=== PATIENT | male | born 1945 | race Caucasian/White ===

== ENCOUNTER 2018-10-27 05:38 | Outpatient (CLI) | payer MEDICARE, OTHER ==
[~2018-10-27] VITALS: Ht 182.9 cm; Wt 78.6 kg
[~2018-10-27 05:38] MED LIST: ACET-2469 PO; AMLO5TAB9 PO; HYDR-3455 PO; HYDR12.5 PO; LISI40TA PO; METO-333 PO; MULT-517 PO
[2018-10-27] MEDS ORDERED: VITA-203 PO (11:57)
[2018-10-27] MEDS ORDERED: ATOR20TA66 PO (11:57)
== END 2018-10-27 13:06 | disposition home or self-care (01) ==
LOC: PREOP 05:38
PROVIDERS: ATTEND Surgery
DX: Z01.818 Encounter for other preprocedural examination (principal)

== ENCOUNTER 2018-11-03 09:25 | Day surgery (SDC) | payer MEDICARE, OTHER ==
[~2018-11-03] VITALS: Ht 182.9 cm; Wt 78.6 kg
[~2018-11-03 09:25] MED LIST changes: +ATOR20TA66 PO; +VITA-203 PO
--- OUTSIDE RECORDS SUMMARY | 2018-11-03 09:28 | XMS REPORT | Continuity of Care Document ---
Author Organization Unknown Address Unknown Allergies Active Description Code Type Severity Reaction Onset Reported/Identified Relationship to Patient Clinical Status Yes No Known Drug Allergies [id number] Drug Allergy Unknown N/A 10/27/2018 Medications There is no data. Problems Date Dx Coded Attending Type Code Diagnosis Diagnosed By 10/11/2015 PETRA BROWN DO Ot R22.2 LOCALIZED SWELLING, MASS AND LUMP, TRUNK 10/11/2015 PETRA BROWN DO Ot R22.2 LOCALIZED SWELLING, MASS AND LUMP, TRUNK 11/08/2015 PETRA BROWN DO Ot R22.2 LOCALIZED SWELLING, MASS AND LUMP, TRUNK 12/15/2015 PETRA BROWN DO Ot R22.2 LOCALIZED SWELLING, MASS AND LUMP, TRUNK 12/15/2015 ASHER MCNEILL, MIKE Beard Ot K40.90 UNIL INGUINAL HERNIA, W/O OBST OR GANGR, 12/15/2015 ASHER MCNEILL, MIKE Beard Ot Z01.812 ENCOUNTER FOR PREPROCEDURAL LABORATORY E 12/15/2015 ASHER MCNEILL, MIKE Beard Ot Z11.2 ENCOUNTER FOR SCREENING FOR OTHER BACTER 12/18/2015 MIKE STERLING MD Ot K40.90 UNIL INGUINAL HERNIA, W/O OBST OR GANGR, 12/18/2015 ASHER MCNEILL, MIKE Beard Ot Z01.812 ENCOUNTER FOR PREPROCEDURAL LABORATORY E 12/18/2015 ASHER MCNEILL, MIKE Beard Ot Z11.2 ENCOUNTER FOR SCREENING FOR OTHER BACTER 12/22/2015 PETRA BORWN DO Ot R22.2 LOCALIZED SWELLING, MASS AND LUMP, TRUNK 12/22/2015 MIKE STERLING MD Ot K40.90 UNIL INGUINAL HERNIA, W/O OBST OR GANGR, 12/25/2015 MIKE STERLING MD Ot K40.90 UNIL INGUINAL HERNIA, W/O OBST OR GANGR, 10/27/2018 PETRA BROWN DO Ot R22.2 LOCALIZED SWELLING, MASS AND LUMP, TRUNK 10/27/2018 JAYY NEIL DO Ot Z01.818 ENCOUNTER FOR OTHER PREPROCEDURAL EXAMIN 10/28/2018 JAYY NEIL DO Ot Z01.818 ENCOUNTER FOR OTHER PREPROCEDURAL EXAMIN Procedures There is no data. Results There is no data. Encounters ACCT No. Visit Date/Time Discharge Status Pt. Type Provider Facility Loc./Unit Complaint [id number] 10/27/2018 05:38:00 10/27/2018 13:06:00 DIS Outpatient JAYY NEIL DO [facility] PREOP COLONOSCOPY [id number] 12/22/2015 11:24:00 12/22/2015 21:17:00 DIS Outpatient MIKE STERLING MD Via [facility] RIGHT INGUINAL HERNIA [id number] 12/15/2015 11:46:00 12/15/2015 12:59:00 DIS Outpatient MIKE STERLING MD [facility] PREOP RIGHT INGUINAL HERNIA [id number] 10/10/2015 14:34:00 10/10/2015 23:59:59 CLS Outpatient PETRA BROWN DO [facility] RAD LUMP IN LUMBAR REGION 6 MONTHS [id number] 11/03/2018 11:20:00 PEN Preadmit JAYY NEIL DO [facility] ENDO POSITIVE COLOGUARD
[2018-11-03] MEDS ORDERED: LACTATED RINGERS 1,000 ML IV STA (09:35)
[2018-11-03] MEDS ORDERED: LACTATED RINGERS 1,000 ML IV ONE (09:44)
[2018-11-03 10:28] VITALS: BP 151/112
--- NOTE | 2018-11-03 12:15 | Progress Note-Pre Operative ---
Pre-Operative Progress Note H&P Reviewed The H&P was reviewed, patient examined and no changes noted. Date Seen by Provider: Nov 03, 2018 Time Seen by Provider: 12:15 Date H&P Reviewed: Nov 03, 2018 Time H&P Reviewed: 12:15 Pre-Operative Diagnosis: +JAYY Angela DO Nov 03, 2018 12:15
[2018-11-03] MEDS ORDERED: PROPOFOL INJECTION 50 ML IV ONE ×2 (12:38→13:02)
[2018-11-03] MEDS ORDERED: MIDAZOLAM 2 MG/2 ML (VERSED) VIAL ONE (12:38)
--- NOTE | 2018-11-03 13:52 | Progress Note-Post Operative ---
Post-Operative Progess Note Surgeon (s)/Director Of Quantitative Research (s) Surgeon JAYY NEIL DO Director Of Quantitative Research: na Pre-Operative Diagnosis +cologuard Post-Operative Diagnosis min diverticulosis, internal hemorhoids Procedure & Operative Findings Date of Procedure 11/03/18 Procedure Performed/Findings colonoscopy Anesthesia Type per aerial applicator pilot Estimated Blood Loss Estimated blood loss (mL): scant Specimens/Packing Specimens Removed na JAYY NEIL DO Nov 03, 2018 13:52
--- NOTE | 2018-11-03 13:54 | Discharge Inst-Simple/Standard ---
Discharge Inst-Standard Patient Instructions/Follow Up Plan of Care/Instructions/FU: repeat colonoscopy in 10 years unless family history colon cancer or personal history of polyps which would be 5 years. Any issues before that be seen at that time for repeat colonoscopy at that time. Activity as Tolerated: Yes Discharge Diet: Regular Diet (high fiber) JAYY NEIL DO Nov 03, 2018 13:54
[2018-11-03 13:55] VITALS: BP 187/104
[2018-11-03 14:25] VITALS: BP 163/111
--- NOTE | 2018-11-03 14:28 | Anesthesia-General Post-Op ---
MAC Patient Condition Mental Status/LOC: Same as Preop Cardiovascular: Satisfactory Nausea/Vomiting: Absent Respiratory: Satisfactory Pain: Controlled Complications: Absent Post Op Complications Complications None Follow Up Care/Instructions Patient Instructions None needed. Anesthesiology Discharge Order Discharge Order Patient is doing well, no complaints, stable vital signs, no apparent adverse anesthesia problems. No complications reported per nursing. GEORGI SAENZ CRNA Nov 03, 2018 14:28
[2018-11-03 15:00] VITALS: BP 163/111
--- NOTE | 2018-11-03 19:44 | OPERATIVE REPORT ---
DATE OF SERVICE: 11/03/2018 PREOPERATIVE DIAGNOSIS: Positive Cologuard test. POSTOPERATIVE DIAGNOSIS: Internal hemorrhoids. PROCEDURE: Colonoscopy. SURGEON: Jayy Zelaya DO ANESTHESIA: Per CREW CLERK. ESTIMATED BLOOD LOSS: None. COMPLICATIONS: None. INDICATIONS: The patient is a 73-year-old male with positive Cologuard test. He was explained risks and benefits of procedure and wished to proceed with procedure. Consent was signed in the chart. DESCRIPTION OF PROCEDURE: The patient was taken to the endoscopy suite, placed in left lateral recumbent position. Timeout was performed. Digital rectal exam was performed. There were no palpable polyps, masses or ulcerations. The scope was inserted in the rectum and passed all the way to the cecum with minimal difficulty. Prep was poor, but lots of irrigation and time was used to suction the stool contents to make an adequate prep. Scope was then slowly retracted back. There were no polyps, mass or ulcerations visualized within the cecum, ascending, transverse, descending and sigmoid colon. Very minimal amount of diverticulosis present. Scope was then continuously retracted back into the rectum where it was retroflexed noting no other pathology except some internal hemorrhoids. Scope was returned to its normal position, slowly withdrawn until completely removed noting no other pathology. The patient tolerated procedure well without any complications, taken to recovery room in stable condition. RECOMMENDATIONS: The patient will need repeat colonoscopy in 10 years family history of colon cancer, personal history of polyps, which would then be 5 years. If any issues before that would be seen at that time and repeat colonoscopy. Job ID: [id number] DocumentID: [id number] Dictated Date: 11/03/2018 13:48:20 Commercial Fisher Date: 11/03/2018 19:44:26 Dictated By: JAYY ZELAYA DO
== END 2018-11-03 15:00 | disposition home or self-care (01) ==
LOC: ENDO 09:25
PROVIDERS: ATTEND Surgery
DX: K64.8 Other hemorrhoids (principal); I10 Essential (primary) hypertension; E78.5 Hyperlipidemia, unspecified; Z87.19 Personal history of other diseases of the digestive system; Z86.718 Personal history of other venous thrombosis and embolism; Z87.891 Personal history of nicotine dependence; Z79.899 Other long term (current) drug therapy

== ENCOUNTER → 2020-03-03 | Outpatient (CLI) | payer MEDICARE, OTHER ==
[~2020-03-03] MED LIST changes: -ACET-2469 PO; +ACET-3075 PO
--- NOTE | 2020-03-03 12:38 | Diagnostic Imaging Report ---
INDICATION: Lower back pain. COMPARISON: None available. TECHNIQUE: 3 radiographs of lumbar spine dated 03/03/2020. FINDINGS: 5 lumbar type vertebral bodies are present. Moderate apex right curvature of the lumbar spine. Approximately 4 mm retrolisthesis of L2 on L3. No additional significant anterolisthesis or retrolisthesis. Severe disc space height loss at L2/L3, L3/L4, L4/L5, and L5/S1. This is associated with advanced endplate degenerative changes. No definite recent vertebral body compression deformity. Vacuum disc phenomenon at L5/S1. Multilevel anterior osteophyte formation. Multilevel lateral osteophytes are present. The sacroiliac joints are intact. No acute fracture. IMPRESSION: No acute osseous abnormality with apex right curvature of the lumbar spine and advanced multilevel degenerative changes as described above. Minimal 4 mm retrolisthesis of L2 on L3. Dictated by: Dictated on workstation # [id number]
== END ==
LOC: RAD 12:12
PROVIDERS: ATTEND Family Medicine
DX: M47.816 Spondylosis without myelopathy or radiculopathy, lumbar region (principal); M43.8X6 Other specified deforming dorsopathies, lumbar region; M43.16 Spondylolisthesis, lumbar region; M51.37 Other intervertebral disc degeneration, lumbosacral region; M25.78 Osteophyte, vertebrae
CPT/HCPCS: 72100

== ENCOUNTER → 2020-06-28 | Outpatient (CLI) | payer MEDICARE, OTHER ==
[~2020-06-28] MED LIST changes: +AMLO-250 PO; -AMLO5TAB9 PO; +CATHETER FLUSH 10 ML SYR IV PRN; +HOLD METFORMIN - RECEIVED CONTRAST 20 ML VIAL IV SCH; +IOHEXOL 350 MG/ML 100 ML (OMNIPAQUE 350) VIAL IV ONE; +NS 100 ML (IVPB) BAG IV ONE
--- NOTE | 2020-06-28 11:38 | Diagnostic Imaging Report ---
PROCEDURE: CT abdomen and pelvis with contrast. TECHNIQUE: Multiple contiguous axial images were obtained through the abdomen and pelvis after administration of intravenous contrast. Auto Exposure Controls were utilized during the CT exam to meet ALARA standards for radiation dose reduction. All CT scans use one or more of the following dose optimizing techniques: automated exposure control, MA and/or KvP adjustment based on patient size and exam type or iterative reconstruction. INDICATION: Mid abdominal pain and elevated alkaline phosphatase. COMPARISON: No prior studies are available for comparison. FINDINGS: Lung bases are clear. Liver contains a large low attenuation circumscribed mass throughout the left lobe and portions of the right lobe measuring approximately 20 cm transverse x 16.3 cm AP x 17.2 cm cephalocaudal. No enhancement is identified and findings are most suggestive of a large simple cyst. This does create some obstruction of the biliary system where there is some dilatation of the right and left lobe intrahepatic bile ducts. Gallbladder is unremarkable. Pancreas and spleen are unremarkable. No adrenal mass is detected. Kidneys contain cortical low-density masses, largest on the left upper pole measuring 5.2 cm and most consistent with cysts. There is a hyperdense lesion in posterior lower pole of the right kidney measuring 2.2 cm. This is indeterminate between a solid versus hemorrhagic lesion. There is additional tiny cortical hyperdense lesions in the right kidney which are indeterminate as well. There appears to be nonobstructing calculi in the right kidney but no hydronephrosis. Aorta is non-aneurysmal. No central retroperitoneal or mesenteric lymphadenopathy is seen. Small and large bowel loops are normal caliber. There is no free fluid or fluid collection identified. Bladder is unremarkable. No pelvic lymphadenopathy is seen. Prostate is unremarkable. Bony structures are unremarkable. IMPRESSION: 1. Large hepatic cyst which does appear to create some intrahepatic biliary obstruction with [id number] biliary ductal dilatation. 2. Bilateral renal cysts. There are also indeterminate hyperdense lesions within the right kidney, too small to characterize but close follow-up to confirm stability would be recommended. 3. No other significant abnormality is detected. Dictated by: Dictated on workstation # [id number]
== END ==
LOC: RAD 10:45
PROVIDERS: ATTEND Family Medicine
DX: R74.8 Abnormal levels of other serum enzymes (principal); K76.89 Other specified diseases of liver; N28.1 Cyst of kidney, acquired; K83.9 Disease of biliary tract, unspecified
CPT/HCPCS: 74177

== ENCOUNTER → 2020-07-24 | Outpatient (CLI) | payer MEDICARE, OTHER ==
[~2020-07-24] MED LIST changes: -CATHETER FLUSH 10 ML SYR IV PRN; -HOLD METFORMIN - RECEIVED CONTRAST 20 ML VIAL IV SCH; -IOHEXOL 350 MG/ML 100 ML (OMNIPAQUE 350) VIAL IV ONE; -LISI40TA PO; +LISI40TA9 PO; -NS 100 ML (IVPB) BAG IV ONE
== END ==
LOC: LABNPT 05:54
PROVIDERS: ATTEND Family Medicine
DX: Z53.9 Procedure and treatment not carried out, unspecified reason (principal)

== ENCOUNTER 2021-02-21 07:36 | Emergency (ER) | payer MEDICARE, OTHER ==
[~2021-02-21] VITALS: Ht 182 cm; Wt 81.0 kg
[2021-02-21] MEDS ORDERED: fentaNYL INJ 100 MCG/2 ML AMP IVP STA (07:53)
[2021-02-21] MEDS ORDERED: LACTATED RINGERS 1,000 ML IV ONE (08:00)
--- NOTE | 2021-02-21 08:02 | ED GI ---
General Chief Complaint: Abdominal/GI Problems Stated Complaint: CONSTIPATION Source of Information: Patient History of Present Illness Date Seen by Provider: Feb 21, 2021 Time Seen by Provider: 07:41 Initial Comments PT ARRIVES VIA POV FROM HOME WITH C/O CONSTIPATION AND SEVERE GENERALIZED ABDOMINAL PAIN FOR THE LAST SEVERAL DAYS HAS PASSED A FEW SMALL HARD PELLETS THE LAST COUPLE OF DAYS, LAST TIME WAS YESTERDAY NO NAUSEA/VOMITING, BUT HAS HAD MINIMAL INTAKE THE LAST FEW DAYS DUE TO STOMACH DISCOMFORT LAST FOOD INTAKE WAS A FEW BITES OF LUNCH YESTERDAY AROUND NOON NO PROBLEMS URINATING AND IS VOIDING A NORMAL AMOUNT NO FEVER HAS NOT TAKEN ANYTHING FOR SYMPTOMS NO HISTORY OF SIMILAR NO NEW MEDICATIONS HAS HAD RIGHT INGUINAL HERNIA REPAIR IN 2016 HAD ESSENTIALLY NORMAL SCREENING COLONOSCOPY IN 2019--SHOWED MINIMAL DIVERTICULAR DISEASE AND INTERNAL HEMORRHOIDS HAD CYST ON LIVER REMOVED AT IN JULY, IT HAS RETURNED AND IT TO HAVE SURGERY AGAIN AT 03/16/21. NO OTHER ABDOMINAL SURGERIES NO SIGNIFICANT GI PROBLEMS IN PAST HAS HAD BOTH MODERNA COVID-19 VACCINES, LAST ONE IN AUGUST 2020 PCP: DR. BROWN HEPATIC SURGEON AT : DR. CASTELLANOS Allergies and Home Medications Allergies Coded Allergies: No Known Drug Allergies (Unverified , 10/27/18) Patient Home Medication List Home Medication List Reviewed: Yes Amlodipine Besylate (Amlodipine Besylate) 5 Mg Tablet, 5 MG PO DAILY, (Reported) Entered as Reported by: ROSA GARCIA on 12/15/15 1203 Atorvastatin Calcium (Atorvastatin Calcium) 20 Mg Tablet, 20 MG PO HS, (Reported) Entered as Reported by: ROSA GARCIA on 10/27/18 1157 Hydrochlorothiazide (Hydrochlorothiazide) 12.5 Mg Capsule, 12.5 MG PO DAILY, (Reported) Entered as Reported by: ROSA GARCIA on 12/15/15 1203 Lisinopril (Lisinopril) 40 Mg Tablet, 40 MG PO DAILY, (Reported) Entered as Reported by: ROSA GARCIA on 12/15/15 1203 Metoprolol Tartrate (Metoprolol Tartrate) 25 Mg Tablet, 25 MG PO DAILY, (Reported) Entered as Reported by: ROSA GARCIA on 12/15/15 1203 Vitamin A Palmitate (Vitamin A) 10,000 Unit Capsule, 10,000 UNIT PO DAILY, (Reported) Entered as Reported by: ROSA GARCIA on 10/27/18 3328 Review of Systems Review of Systems Constitutional: other (DECREASED APPETITE) Respiratory: No Symptoms Reported Cardiovascular: No Symptoms Reported Gastrointestinal: See HPI, Abdomen Distended, Abdominal Pain, Constipated; Denies Diarrhea, Denies Nausea; Poor Appetite; Denies Vomiting Genitourinary: No Symptoms Reported Musculoskeletal: no symptoms reported; No back pain Skin: no symptoms reported Psychiatric/Neurological: No Symptoms Reported Endocrine: No Symptoms Reported Hematologic/Lymphatic: No Symptoms Reported Past Njsilsp-Mgjguw-Mplzup Hx Immunizations Up To Date Tetanus Booster (TDap): Unknown PED Vaccines UTD: No Seasonal Allergies Seasonal Allergies: No Past Medical History Surgery/Hospitalization HX: SCREENING COLONOSCOPIES 2005, [address] NEIL--MINIMAL DIVERTICULAR DISEASE, INTERNAL HEMORRHOIDS RIGHT INGUINAL HERNIA REPAIR [address] STERLING SURGERY TO REMOVED BLOOD CLOT IN LEG 1990 CYST ON LIVER REMOVED 07/2020 AT Surgeries: Yes (VEINS REMOVED FROM LEGS) Abdominal, Vascular Surgery Respiratory: No Currently Using CPAP: No Currently Using BIPAP: No Cardiac: Yes (1990- SURGERY TO REMOVE BLOOD CLOT) Deep Vein Thrombosis, High Cholesterol, Hypertension Neurological: No Reproductive Disorders: No Sexually Transmitted Disease: No HIV/AIDS: No Genitourinary: No Gastrointestinal: Yes (HEPATIC CYST) Abdominal Hernia, Diverticulosis, Hemorrhoids, Polyps Musculoskeletal: No Endocrine: No HEENT: Yes (READING GLASSES) Loss of Vision: Bilateral Hearing Impairment: Denies Cancer: No Psychosocial: No Integumentary: No Blood Disorders: No Adverse Reaction/Blood Tranf: No (N/A) Family Medical History Dementia 19 MOTHER FH: gallbladder disease 19 MOTHER FH: lung cancer 19 FATHER FHx: cerebral palsy G8 SISTER Physical Exam Vital Signs Vital Signs - First Documented 02/21/21 07:36 Temp 35.0 Pulse 96 Resp 18 B/P (MAP) 157/114 (128) Pulse Ox 97 O2 Delivery Room Air Capillary Refill : Height/Weight/BMI Height: 6'0.00" Weight: 173lbs. 5.0oz. [id number]; 23.5 BMI Method: General Appearance: WD/WN, other (LOOKS UNCOMFORTABLE, UNABLE TO LAY DOWN) Respiratory: normal breath sounds, no respiratory distress, no accessory muscle use Cardiovascular: regular rate, rhythm, no murmur Gastrointestinal: abnormal bowel sounds (NO BOWEL SOUNDS HEARD), distended (AND FIRM), tenderness (DIFFUSE TENDERNESS) Extremities: normal inspection Back: no CVA tenderness Neurologic/Psychiatric: nicker and breaker II-XII nml as tested, no motor/sensory deficits, alert, oriented x 3 Skin: normal color, warm/dry; No rash Focused Exam Lactate Level 02/21/21 16:28: Lactic Acid Level 2.06*H Lactic Acid Level Laboratory Tests Test 02/21/21 16:28 Lactic Acid Level 2.06 MMOL/L (0.50-2.00) *H Progress/Results/Core Measures Results/Orders Lab Results Laboratory Tests Test 02/21/21 08:19 02/21/21 10:04 02/21/21 10:40 02/21/21 16:28 Range/Units White Blood Count 14.6 H 17.8 H 4.3-11.0 10^3/uL Red Blood Count 5.36 5.49 4.30-5.52 10^6/uL Hemoglobin 14.1 14.2 13.3-17.7 g/dL Hematocrit 44 45 40-54 % Mean Corpuscular Volume 83 81 80-99 fL Mean Corpuscular Hemoglobin 26 26 25-34 pg Mean Corpuscular Hemoglobin Concent 32 32 32-36 g/dL Red Cell Distribution Width 15.7 H 15.8 H 10.0-14.5 % Platelet Count 357 390 130-400 10^3/uL Mean Platelet Volume 11.2 10.9 9.0-12.2 fL Immature Granulocyte % (Auto) 1 0 % Neutrophils (%) (Auto) 93 H 94 H 42-75 % Lymphocytes (%) (Auto) 5 L 4 L 12-44 % Monocytes (%) (Auto) 1 1 0-12 % Eosinophils (%) (Auto) 0 0 0-10 % Basophils (%) (Auto) 0 0 0-10 % Neutrophils # (Auto) 13.5 H 16.7 H 1.8-7.8 10^3/uL Lymphocytes # (Auto) 0.8 L 0.8 L 1.0-4.0 10^3/uL Monocytes # (Auto) 0.2 0.2 0.0-1.0 10^3/uL Eosinophils # (Auto) 0.0 0.0 0.0-0.3 10^3/uL Basophils # (Auto) 0.0 0.0 0.0-0.1 10^3/uL Immature Granulocyte # (Auto) 0.1 0.1 0.0-0.1 10^3/uL Neutrophils % (Manual) 92 94 % Lymphocytes % (Manual) 6 3 % Monocytes % (Manual) 1 3 % Band Neutrophils 1 % Blood Morphology Comment NORMAL NORMAL Sodium Level 140 138 135-145 MMOL/L Potassium Level 3.7 3.7 3.6-5.0 MMOL/L Chloride Level 100 99 98-107 MMOL/L Carbon Dioxide Level 27 27 21-32 MMOL/L Anion Gap 13 12 5-14 MMOL/L Blood Urea Nitrogen 18 19 H 7-18 MG/DL Creatinine 1.00 0.87 0.60-1.30 MG/DL Estimat Glomerular Filtration Rate 73 86 BUN/Creatinine Ratio 18 22 Glucose Level 98 97 70-105 MG/DL Calcium Level 10.0 9.8 8.5-10.1 MG/DL Corrected Calcium 10.2 H 10.1 8.5-10.1 MG/DL Magnesium Level 1.6 1.6-2.4 MG/DL Total Bilirubin 2.2 H 2.0 H 0.1-1.0 MG/DL Aspartate Amino Transf (AST/SGOT) 40 H 34 5-34 U/L Alanine Aminotransferase (ALT/SGPT) 62 H 56 H 0-55 U/L Alkaline Phosphatase 522 H 474 H 40-136 U/L Total Protein 7.6 7.7 6.4-8.2 GM/DL Albumin 3.7 3.6 3.2-4.5 GM/DL Amylase Level 46 35 25-125 U/L Lipase 19 15 8-78 U/L Urine Color ORANGE Urine Clarity CLEAR Urine pH 7.0 5-9 Urine Specific Damon 1.020 1.016-1.022 Urine Protein 2+ H NEGATIVE Urine Glucose (UA) NEGATIVE NEGATIVE Urine Ketones NEGATIVE NEGATIVE Urine Nitrite NEGATIVE NEGATIVE Urine Bilirubin NEGATIVE NEGATIVE Urine Urobilinogen 1.0 < = 1.0 MG/DL Urine Leukocyte Esterase NEGATIVE NEGATIVE Urine RBC (Auto) 1+ H NEGATIVE Urine RBC RARE /HPF Urine WBC RARE /HPF Urine Crystals NONE /LPF Urine Bacteria NEGATIVE /HPF Urine Casts NONE /LPF Urine Mucus NEGATIVE /LPF Urine Culture Indicated NO SARS-CoV-2 RNA (RT-PCR) Not Detected Not Detecte Lactic Acid Level 2.06 *H 0.50-2.00 MMOL/L Procalcitonin 1.32 H <0.10 NG/ML My Orders Orders - MARLYN PEDRO DO Ed Iv/Invasive Line Start (02/21/21 07:53) Amylase (02/21/21 07:53) Cbc With Automated Diff (02/21/21 07:53) Comprehensive Metabolic Panel (02/21/21 07:53) Lipase (02/21/21 07:53) Magnesium (02/21/21 07:53) Ua Culture If Indicated (02/21/21 07:53) Acute Abd Series (02/21/21 07:53) Ed Iv/Invasive Line Start (02/21/21 07:53) Lactated Ringers (Lr 1000 Ml Iv Solution (02/21/21 08:00) Fentanyl Inj (Sublimaze Injection) (02/21/21 07:53) Manual Differential (02/21/21 08:19) Ct Abdomen/Pelvis W (02/21/21 08:58) Iohexol Injection (Omnipaque 350 Mg/Ml 1 (02/21/21 10:00) Received Contrast (Hold Metformin- Contr (02/21/21 10:00) Ns (Ivpb) (Sodium Chloride 0.9% Ivpb Bag (02/21/21 10:00) Sodium Chloride Flush (Catheter Flush Sy (02/21/21 10:00) Fentanyl Inj (Sublimaze Injection) (02/21/21 10:30) Covid 19 Inhouse Test (02/21/21 10:33) Morphine Injection (Morphine Injection (02/21/21 13:30) D5 1/2 Ns W/Kcl 20 Meq/L (Dextrose 5%/0. (02/21/21 14:30) Amylase (02/21/21 16:11) Cbc With Automated Diff (02/21/21 16:11) Comprehensive Metabolic Panel (02/21/21 16:11) Lipase (02/21/21 16:11) Lactic Acid Analyzer (02/21/21 16:11) Procalcitonin (Pct) (02/21/21 16:11) Blood Culture (02/21/21 16:11) Morphine Injection (Morphine Injection (02/21/21 16:16) Manual Differential (02/21/21 16:28) Medications Given in ED Vital Signs/I&O 02/21/21 02/21/21 07:36 18:19 Temp 35.0 Pulse 96 100 Resp 18 18 B/P (MAP) 157/114 (128) 150/99 Pulse Ox 97 94 O2 Delivery Room Air Room Air Progress Progress Note : Progress Note GIVEN FENTANYL WITH SOME RELIEF OF PAIN GIVEN IV FLUIDS SWITCHED TO MORPHINE, WITH BETTER PAIN CONTROL NO DETERIORATION IN PT'S CONDITION DURING ER STAY NO HYPOTENSION NO TACHYCARDIA NO FEVER NO RESPIRATORY SYMPTOMS OR HYPOXIA Diagnostic Imaging Comments ABDOMEN XRAYS--PER RADIOLOGIST REPORT AT 0914 ACUTE ABD SERIES INDICATION: Abdominal pain The accompanying erect PA chest is taken in shallow inspiration. Allowing for this technical factor the heart size is within normal limits and the lungs are clear. There is no sign of a pneumoperitoneum. Supine and erect views of the abdomen were obtained. There is a fair amount of gas in both the large and small bowel. The amount of bowel gas has increased somewhat since the prior CT abdomen/pelvis exam of 06/28/2020. There is an air-fluid level involving a dilated segment of small bowel just to the left midline on the erect film. This appearance is nonspecific however. The hepatic flexure of the colon and the small bowel does seem to be displaced medially. The CT exam did show a roughly 20 cm cyst along the medial aspect of the right lobe of liver. There is a fair amount of fecal material in the rectosigmoid and descending colon. The osseous structures are intact. IMPRESSION: 1. There is greater distention of both large and small bowel by gas than noted on the previous study. However there is no evidence for a bowel obstruction. 2. If clinical concern regarding a partial intermittent obstruction persists, then a contrast small bowel exam would be recommended. 3. There does appear to be a fair amount of fecal material in the rectosigmoid and descending colon. CT ABDOMEN/PELVIS--DISCUSSED WITH RADIOLOGIST AT 1005, AND PER DICTATED REPORT AT 1049 FINDINGS: Lung bases: There are small bilateral pleural effusions with bibasilar atelectasis or consolidation. Solid organs: Decreased size of the large left predominant hepatic cyst which measures up to 13.3 cm. (Previously 19.8 cm). The gallbladder is normal. There is stable intrahepatic biliary ductal dilatation. No significant dilatation of the common bile duct. Pancreas is normal. Spleen is normal. Adrenal glands are normal. There is a nonobstructing right renal calculus measuring up to 0.7 cm. There is no hydronephrosis. Stable bilateral renal cysts. There are multiple redemonstrated right renal cortical cysts present. There are multiple stable bilateral hyperdense renal lesions measuring up to 2.2 cm on the right and 1.3 cm on the left. Bowel: The stomach and small bowel are normal without obstruction. There is scattered colonic diverticulosis. There is moderate amount of stool seen throughout the colon. No findings of acute appendicitis. Peritoneum: There is increased mild abdominal and pelvic ascites. No intra-abdominal free air. No suspicious lymphadenopathy. Vasculature: Calcification of the aorta without aneurysm. Musculoskeletal: Degenerative changes of the spine without suspicious osseous lesion or compression fracture. There are bilateral L5 pars defects. Pelvis: The prostate gland is normal. The urinary bladder is normal. IMPRESSION: 1. No findings of bowel obstruction. 2. Decreased size of the large hepatic cyst with stable intrahepatic biliary ductal dilatation. 3. New mild ascites. 4. Stable hyperdense renal lesions. This could be further evaluated with MRI. 5. Colonic diverticulosis without findings diverticulitis. 6. Nonobstructing right renal calculus measuring up to 0.7 cm. 7. Small pleural effusions with adjacent atelectasis or consolidation. Reviewed: Reviewed by Me, Discussed w/Radiologist Departure Communication (Admissions) 1010--SPOKE WITH DR. NEIL, HE WILL REVIEW CT AND CALL ME BACK 1022--SPOKE WITH DR. NEIL, HE ADVISES TO TRANSFER TO [facility] 1026--CALLED [facility] AND IMAGES CLOUDED TO THEM. THEY WILL CALL BACK 1131--CALLED [facility]. STILL IN PROCESS, HAVE RECEIVED IMAGES, IN PROCESS OF HAVING DR. CASTELLANOS REVIEW FILMS. THEY WILL CALL BACK WHEN THEY HAVE TALKED WITH HIM. 1323--CALLED [facility]. DR. CASTELLANOS HAS BEEN PAGED, WAITING FOR HIM TO CALL BACK. 1419--[facility] CALLED. DR. [facility]LL[facility] HAS ACCEPTED PT FOR ADMIT. WILL CALL BACK WITH BED ASSIGNMENT 1425--SPOKE WITH JANELL FUNK WITH [employer], REGARDING ARRANGEMENTS FOR PT'S WHO HAS DEMENTIA 1447--JANELL HERE TO TALK WITH PT AND . PLAN IS FOR SON TO DRIVE DOWN FROM [place] AND TAKE CARE OF MOTHER. HE WILL BE HERE AROUND 1800 TONIGHT 1600--CALLED [facility] FOR UPDATE ON BED ASSIGNMENT. NO BEDS AT THIS TIME. THEY WILL CALL BACK WHEN BED IS AVAILABLE 1700--[facility] CALLED BACK, BED HAS BEEN ASSIGNED. RN IS CALLING EMS FOR TRANSPORT. JANELL NOTIFIED OF EMS ENROUTE. Impression Primary Impression: Abdominal pain Additional Impressions: Fluid in peritoneal cavity Hepatic cyst Leukocytosis Elevated bilirubin Constipation Sepsis Disposition: 02 XFER SHT-TRM HOSP Condition: Stable Transfer Transfer Reason: Exceeds level of care Transfer Facility: Method of Transfer: EMS Departure-Patient Inst. Referrals: PETRA BROWN DO (PCP/Family) Primary Care Physician MARLYN PEDRO DO Feb 21, 2021 08:01
[2021-02-21 08:36] LABS: BASOPHILS % (AUTO) 0 % (0-10); EOSINOPHILS % (AUTO) 0 % (0-10); HEMATOCRIT 44 % (40-54); HEMOGLOBIN 14.1 g/dL (13.3-17.7); LYMPHOCYTES # (AUTO) 0.8 10^3/uL (1.0-4.0); LYMPHOCYTES % (AUTO) 5 % (12-44); MEAN CORPUSCULAR HEMOGLOBIN 26 pg (25-34); MEAN CORPUSCULAR HGB CONC 32 g/dL (32-36); MEAN CORPUSCULAR VOLUME 83 fL (80-99); MEAN PLATELET VOLUME 11.2 fL (9.0-12.2); MONOCYTES # (AUTO) 0.2 10^3/uL (0.0-1.0); MONOCYTES % (AUTO) 1 % (0-12); NEUTROPHILS # (AUTO) 13.5 10^3/uL (1.8-7.8); NEUTROPHILS % (AUTO) 93 % (42-75); PLATELET COUNT 357 10^3/uL (130-400); WHITE BLOOD COUNT 14.6 10^3/uL (4.3-11.0)
[2021-02-21 08:50] LABS: ALBUMIN 3.7 GM/DL (3.2-4.5)
[2021-02-21 08:51] LABS: POTASSIUM 3.7 MMOL/L (3.6-5.0)
[2021-02-21 08:53] LABS: BAND NEUTROPHILS 1 %; LYMPHOCYTES % (MANUAL) 6 %; MONOCYTES % (MANUAL) 1 %; NEUTROPHILS % (MANUAL) 92 %; RBC MORPH NORMAL; TOTAL PROTEIN 7.6 GM/DL (6.4-8.2)
[2021-02-21 08:55] LABS: BILIRUBIN,TOTAL 2.2 MG/DL (0.1-1.0)
[2021-02-21 09:00] LABS: MAGNESIUM 1.6 MG/DL (1.6-2.4)
--- NOTE | 2021-02-21 09:08 | Diagnostic Imaging Report ---
INDICATION: Abdominal pain The accompanying erect PA chest is taken in shallow inspiration. Allowing for this technical factor the heart size is within normal limits and the lungs are clear. There is no sign of a pneumoperitoneum. Supine and erect views of the abdomen were obtained. There is a fair amount of gas in both the large and small bowel. The amount of bowel gas has increased somewhat since the prior CT abdomen/pelvis exam of 06/28/2020. There is an air-fluid level involving a dilated segment of small bowel just to the left midline on the erect film. This appearance is nonspecific however. The hepatic flexure of the colon and the small bowel does seem to be displaced medially. The CT exam did show a roughly 20 cm cyst along the medial aspect of the right lobe of liver. There is a fair amount of fecal material in the rectosigmoid and descending colon. The osseous structures are intact. IMPRESSION: 1. There is greater distention of both large and small bowel by gas than noted on the previous study. However there is no evidence for a bowel obstruction. 2. If clinical concern regarding a partial intermittent obstruction persists, then a contrast small bowel exam would be recommended. 3. There does appear to be a fair amount of fecal material in the rectosigmoid and descending colon. Dictated by: Dictated on workstation # [id number]
[2021-02-21] MEDS ORDERED: HOLD METFORMIN - RECEIVED CONTRAST 20 ML VIAL IV SCH (10:00)
[2021-02-21] MEDS ORDERED: NS 100 ML (IVPB) BAG IV ONE (10:00)
[2021-02-21] MEDS ORDERED: CATHETER FLUSH 10 ML SYR IV PRN (10:00)
[2021-02-21] MEDS ORDERED: IOHEXOL 350 MG/ML 100 ML (OMNIPAQUE 350) VIAL IV ONE (10:00)
[2021-02-21 10:11] LABS: CLARITY,URINE CLEAR; COLOR,URINE ORANGE; GLUCOSE, URINE (UA) NEGATIVE (NEGATIVE); KETONES,URINE NEGATIVE (NEGATIVE); LEUKOCYTE ESTERASE ,URINE NEGATIVE (NEGATIVE); NITRITE,URINE NEGATIVE (NEGATIVE); PROTEIN,URINE 2+ (NEGATIVE)
[2021-02-21 10:26] LABS: BACTERIA,URINE NEGATIVE /HPF; BILIRUBIN,URINE NEGATIVE (NEGATIVE); RBC,URINE RARE /HPF; WBC,URINE RARE /HPF
[2021-02-21] MEDS ORDERED: fentaNYL INJ 100 MCG/2 ML AMP IVP PRN (10:30)
--- NOTE | 2021-02-21 10:43 | Diagnostic Imaging Report ---
EXAMINATION: CT abdomen and pelvis with intravenous contrast. TECHNIQUE: Multiple contiguous axial images were obtained through the abdomen and pelvis after the uneventful administration of intravenous contrast. All CT scans use one or more of the following dose optimizing techniques: automated exposure control, MA and/or KvP adjustment based on patient size and exam type or iterative reconstruction. HISTORY: PAIN, CONSTIPATION COMPARISON: 06/28/2020 FINDINGS: Lung bases: There are small bilateral pleural effusions with bibasilar atelectasis or consolidation. Solid organs: Decreased size of the large left predominant hepatic cyst which measures up to 13.3 cm. (Previously 19.8 cm). The gallbladder is normal. There is stable intrahepatic biliary ductal dilatation. No significant dilatation of the common bile duct. Pancreas is normal. Spleen is normal. Adrenal glands are normal. There is a nonobstructing right renal calculus measuring up to 0.7 cm. There is no hydronephrosis. Stable bilateral renal cysts. There are multiple redemonstrated right renal cortical cysts present. There are multiple stable bilateral hyperdense renal lesions measuring up to 2.2 cm on the right and 1.3 cm on the left. Bowel: The stomach and small bowel are normal without obstruction. There is scattered colonic diverticulosis. There is moderate amount of stool seen throughout the colon. No findings of acute appendicitis. Peritoneum: There is increased mild abdominal and pelvic ascites. No intra-abdominal free air. No suspicious lymphadenopathy. Vasculature: Calcification of the aorta without aneurysm. Musculoskeletal: Degenerative changes of the spine without suspicious osseous lesion or compression fracture. There are bilateral L5 pars defects. Pelvis: The prostate gland is normal. The urinary bladder is normal. IMPRESSION: 1. No findings of bowel obstruction. 2. Decreased size of the large hepatic cyst with stable intrahepatic biliary ductal dilatation. 3. New mild ascites. 4. Stable hyperdense renal lesions. This could be further evaluated with MRI. 5. Colonic diverticulosis without findings diverticulitis. 6. Nonobstructing right renal calculus measuring up to 0.7 cm. 7. Small pleural effusions with adjacent atelectasis or consolidation. Dictated by: Dictated on workstation # [id number]
[2021-02-21] MEDS ORDERED: morphine INJ 4 MG/ML 1 ML (VIAL/SYRINGE) IVP ONE (13:30)
[2021-02-21] MEDS ORDERED: morphine INJ 10 MG/ML 1ML (SYR OR VIAL) IVP STA ×2 (13:30→16:16)
[2021-02-21] MEDS ORDERED: D5 1/2 NS W/KCL 20 MEQ/L 1,000 ML IV SCH (14:30)
[2021-02-21 16:36] LABS: BASOPHILS % (AUTO) 0 % (0-10); EOSINOPHILS % (AUTO) 0 % (0-10); HEMATOCRIT 45 % (40-54); HEMOGLOBIN 14.2 g/dL (13.3-17.7); LYMPHOCYTES # (AUTO) 0.8 10^3/uL (1.0-4.0); LYMPHOCYTES % (AUTO) 4 % (12-44); MEAN CORPUSCULAR HEMOGLOBIN 26 pg (25-34); MEAN CORPUSCULAR HGB CONC 32 g/dL (32-36); MEAN CORPUSCULAR VOLUME 81 fL (80-99); MEAN PLATELET VOLUME 10.9 fL (9.0-12.2); MONOCYTES # (AUTO) 0.2 10^3/uL (0.0-1.0); MONOCYTES % (AUTO) 1 % (0-12); NEUTROPHILS # (AUTO) 16.7 10^3/uL (1.8-7.8); NEUTROPHILS % (AUTO) 94 % (42-75); PLATELET COUNT 390 10^3/uL (130-400); WHITE BLOOD COUNT 17.8 10^3/uL (4.3-11.0)
[2021-02-21 16:56] LABS: ALBUMIN 3.6 GM/DL (3.2-4.5); POTASSIUM 3.7 MMOL/L (3.6-5.0)
[2021-02-21 16:57] LABS: CALCIUM 9.8 MG/DL (8.5-10.1)
[2021-02-21 16:58] LABS: TOTAL PROTEIN 7.7 GM/DL (6.4-8.2)
[2021-02-21 17:02] LABS: CREATININE SERUM 0.87 MG/DL (0.60-1.30)
[2021-02-21 17:03] LABS: LYMPHOCYTES % (MANUAL) 3 %; MONOCYTES % (MANUAL) 3 %; NEUTROPHILS % (MANUAL) 94 %; RBC MORPH NORMAL
[2021-02-21 18:19] VITALS: BP 150/99
== END 2021-02-21 18:19 | disposition short-term general hospital (02) ==
LOC: EDUNIT# 07:36 → ER 07:37
DX: R18.8 Other ascites (principal); K76.89 Other specified diseases of liver; D72.829 Elevated white blood cell count, unspecified; E80.7 Disorder of bilirubin metabolism, unspecified; K59.00 Constipation, unspecified; A41.9 Sepsis, unspecified organism; I10 Essential (primary) hypertension; E78.00 Pure hypercholesterolemia, unspecified; Z20.822 Contact with and (suspected) exposure to COVID-19; Z79.899 Other long term (current) drug therapy
CPT/HCPCS: 36415; 74022; 74177; 80053; 81000; 82150; 83605; 83690; 83735; 84145; 85007; 85027; 87040; 87636; 96361; 96374; 96375; 96376

== ENCOUNTER → 2021-06-15 | Outpatient (CLI) | payer MEDICARE, OTHER ==
--- NOTE | 2021-06-18 09:02 | Diagnostic Imaging Report ---
PROCEDURE: US Abdomen, limited. TECHNIQUE: Multiple realtime grayscale images were obtained over the abdomen in various projections. INDICATION: Prior history of partial liver resection. Liver is enlarged 20 cm. There is a simple appearing cyst in the right lobe of the liver measuring 15 mm. Portal vein is patent and shows normal direction of flow. There is an area of parenchymal heterogeneity in the right lobe of the liver measuring 8.3 x 5.1 x 8.0 cm. This could potentially represent an area of scarring. Gallbladder is without stones or sludge. No wall thickening or biliary duct dilatation is seen. Pancreas is obscured by bowel gas. Aorta and IVC are obscured by bowel gas. Right kidney contains several cysts, largest approximately 4.2 cm in size. There is no ascites. IMPRESSION: 1. Postoperative changes to the liver. There is an area of parenchyma heterogeneity in the right lobe which could represent postsurgical changes. Close followup would be recommended to confirm stability. CT may be useful for further evaluation. 2. Limited study due to overlying bowel gas. 3. Hepatic and renal cysts. Dictated by: Dictated on workstation # [id number]
== END ==
LOC: RAD 08:00
PROVIDERS: ATTEND Internal Medicine
DX: K76.89 Other specified diseases of liver (principal); Z90.49 Acquired absence of other specified parts of digestive tract; N28.1 Cyst of kidney, acquired
CPT/HCPCS: 76705